=== PATIENT | male | born 1965 | race Two or more races ===

== ENCOUNTER → 2025-01-10 | Outpatient (CLI) | payer MEDICAID, SELFPAY ==
--- NOTE | 2025-01-10 16:31 | XR_ITS ---
Examination: Ankle Bilateral, 6 views Technique: AP oblique lateral each ankle total 6 views Date and time: January 10, 2025 1656 hrs. Indications: Bilateral ankle pain beginning 3 months ago Findings: Old healed fracture distal right fibular shaft Bilateral pes planus Bilateral moderate to advanced osteoarthritis tibiotalar and subtalar joints No acute fractures Impression: Bilateral pes planus bilateral moderate to advanced osteoarthritis tibiotalar and subtalar joints
== END | disposition home or self-care (01) ==
PROVIDERS: Referring Provider Podiatrist; Visit Provider Podiatrist
DX: M21.42 Flat foot [pes planus] (acquired), left foot (principal); M21.41 Flat foot [pes planus] (acquired), right foot; M19.072 Primary osteoarthritis, left ankle and foot; M19.071 Primary osteoarthritis, right ankle and foot
CPT/HCPCS: 73610